=== PATIENT | female | born 1950 | race Asian ===

== ENCOUNTER 2018-08-13 06:06 | Observation (INO) | payer BC ==
[~2018-08-13 06:06] MED LIST: ACETAMINOPHEN 500 MG TAB PO
[2018-08-13] MEDS: DEXAMETHASONE 4 MG/ML 1 ML INJ IV (07:13)
[2018-08-13] MEDS: ACETAMINOPHEN 1000MG/100ML IV 100 ML IVPB (07:14)
[2018-08-13] MEDS: LACTATED RINGER'S 1,000 ML IV ×3 (07:14→22:57)
[2018-08-13] MEDS ORDERED: ROPIVACAINE 0.5 % 30 ML VIAL (08:28)
[2018-08-13] MEDS ORDERED: LIDOCAINE 2% (SDV) 5 ML INJ (08:28)
[2018-08-13] MEDS ORDERED: CEFAZOLIN 1 GM INJ (08:28)
[2018-08-13] MEDS ORDERED: PROPOFOL 20 ML (08:28)
[2018-08-13] MEDS ORDERED: MEPERIDINE 100 MG INJ (08:41)
[2018-08-13] MEDS: BACITRACIN 50000 UNITS INJ (08:48)
[2018-08-13] MEDS: POLYMYXIN B 500000 UNIT INJ (08:48)
[2018-08-13] MEDS: TRANEXAMIC ACID 1GM/100ML(PMX) 100 ML PRE-OP X1 IVPB ×3 (08:50→08:55)
[2018-08-13] MEDS ORDERED: hydrALAzine 20 MG INJ (08:52)
[2018-08-13] MEDS: CEFAZOLIN 2 GM/50 ML (PMX) 50 ML IVPB ×4 (09:10→21:33)
[2018-08-13] MEDS ORDERED: ONDANSETRON 4 MG INJ (09:39)
[2018-08-13] MEDS ORDERED: METOCLOPRAMIDE 10 MG INJ (09:39)
[2018-08-13] MEDS: TRANEXAMIC ACID 1GM/100ML(PMX) 100 ML INTRA-OP X1 IVPB ×2 (10:05)
[2018-08-13] MEDS ORDERED: EPHEDrine 25 MG/5 ML SYG (10:15)
[2018-08-13] MEDS ORDERED: NALOXONE (0.4 MG/ML) INJ IV (10:30)
[2018-08-13] MEDS ORDERED: MAGNESIUM HYDROXIDE 30ML CUP PO (10:30)
[2018-08-13] MEDS ORDERED: KETOROLAC 15 MG INJ IV (10:30)
[2018-08-13] MEDS ORDERED: NACL 0.9% 3 ML SYG IV (10:30)
[2018-08-13] MEDS ORDERED: HYDROmorphONE 1 MG/5 ML IV SYRINGE IV ×3 (11:15→11:30)
[2018-08-13] MEDS: HYDROmorphONE 1 MG/5 ML IV SYRINGE IV ×2 (11:25→11:54)
[2018-08-13] MEDS ORDERED: MEPERIDINE 25 MG INJ IV (11:30)
[2018-08-13] MEDS ORDERED: FENTAnyl 50 MCG/ML VIAL IV ×3 (11:30)
[2018-08-13] MEDS ORDERED: LABETALOL HCL 20MG INJ IV (11:30)
[2018-08-13] MEDS ORDERED: EPHEDrine 25 MG/5 ML SYG IV (11:30)
[2018-08-13] MEDS ORDERED: hydrALAzine 20 MG INJ IV (11:30)
[2018-08-13] MEDS ORDERED: MIDAZOLAM 1 MG/ML 2 ML INJ IV (11:30)
[2018-08-13] MEDS ORDERED: ONDANSETRON 4 MG INJ IV (11:30)
[2018-08-13] MEDS ORDERED: DIPHENHYDRAMINE 50 MG INJ IV (11:30)
[2018-08-13] MEDS ORDERED: OXYCODONE/ACETAMINOPHEN (5/325) TAB PO ×2 (11:30)
[2018-08-13] MEDS ORDERED: METOCLOPRAMIDE 10 MG INJ IV (11:30)
[2018-08-13] MEDS: oxyCODONE 5 MG TAB PO (13:51)
[2018-08-13] MEDS: GABAPENTIN 100 MG CAP PO ×2 (13:51→21:33)
[2018-08-13] MEDS: ONDANSETRON 4 MG INJ IV (15:27)
[2018-08-14] MEDS: LACTATED RINGER'S 1,000 ML IV (01:04)
[2018-08-14 05:31] LABS: ADD MAN DIFF? NO
[2018-08-14 05:39] LABS: BASOPHILS % 0.1 % (0.0-2.0); EOSINOPHILS # 0.1 10^3/ul (0.0-0.5); EOSINOPHILS % 0.8 % (0.0-7.0); HEMATOCRIT 34.3 % (37.0-47.0); HEMOGLOBIN 11.3 g/dl (12.0-16.0); LYMPHOCYTES # 1.4 10^3/ul (0.8-2.9); LYMPHOCYTES % 15.1 % (15.0-51.0); MEAN CORPUSCULAR HGB CONC 32.9 g/dl (32.0-37.0); MEAN CORPUSCULAR VOLUME 88.2 fl (82.0-101.0); MEAN PLATELET VOLUME 9.1 fl (7.4-10.4); MONOCYTE # 0.7 10^3/ul (0.3-0.9); NEUTROPHIL # 6.8 10^3/ul (1.6-7.5); NEUTROPHILS % 75.6 % (39.0-77.0); PLATELET COUNT 185 10^3/UL (140-415); RED BLOOD COUNT 3.89 10^6/ul (4.20-5.40); RED CELL DISTRIBUTION WIDTH 12.8 % (11.5-14.5)
[2018-08-14 06:06] LABS: ANION GAP 4 (5-13); BLOOD UREA NITROGEN 13 mg/dl (7-20); CALCIUM 8.2 mg/dl (8.4-10.2); CARBON DIOXIDE 31 mmol/L (21-31); CHLORIDE 107 mmol/L (97-110); CREATININE 0.62 mg/dl (0.44-1.00); Estimated GFR > 60 mL/min (>60); GLUCOSE 107 mg/dl (70-220); POTASSIUM 4.1 mmol/L (3.5-5.1); SODIUM 142 mmol/L (135-144)
[2018-08-14] MEDS: CEFAZOLIN 2 GM/50 ML (PMX) 50 ML IVPB (06:16)
[2018-08-14] MEDS: LOSARTAN 50 MG TAB PO (08:43)
[2018-08-14] MEDS: CELECOXIB 100 MG CAP PO (08:44)
[2018-08-14] MEDS: ASPIRIN (EC) 81 MG TAB PO (08:44)
[2018-08-14] MEDS: GABAPENTIN 100 MG CAP PO ×2 (08:44→13:00)
[2018-08-14] MEDS: DOCUSATE SODIUM 100 MG CAP PO (08:44)
[2018-08-14] MEDS: HYDROCHLOROTHIAZIDE 25 MG TAB PO (08:47)
[2018-08-14] MEDS ORDERED: ONDANSETRON 4 MG INJ IV (10:30)
[2018-08-14] MEDS: oxyCODONE 5 MG TAB PO ×2 (13:16→17:27)
[2018-08-14] MEDS ORDERED: ATORVASTATIN 40 MG TAB PO (21:00)
[2018-08-15] MEDS ORDERED: PANTOPRAZOLE (EC) 40 MG TAB PO (06:00)
== END 2018-08-14 15:30 | disposition home health service (06) ==
LOC: SDS 06:06 → REC 10:27 → MS1 12:29
DX: M17.11 Unilateral primary osteoarthritis, right knee (principal); I10 Essential (primary) hypertension; E78.5 Hyperlipidemia, unspecified; Z79.82 Long term (current) use of aspirin
CPT/HCPCS: 27447; 73560; 80048; 85025; 86850; 86900; 86901; 87081; 88304; 88311; 97116; 97161; 97530